=== PATIENT | male | born 1990 | race Hispanic/Latino ===

== ENCOUNTER 2017-02-04 21:57 | Emergency (ER) | payer OTHER ==
[2017-02-04 22:31] VITALS: BP 121/67; PULSE 59; RESP 16; TEMP 98.2; O2SAT 100
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
[2017-02-04] MEDS ORDERED: Silver Sulfadiazine 1% CREAM (50 gm) ONE (22:55)
[2017-02-04] MEDS ORDERED: Silver Sulfadiazine 1% Cream (20 gm) TOP STA (22:55)
== END 2017-02-04 23:38 | disposition home or self-care (01) ==
LOC: H.ER 21:57
DX: T30.0 Burn of unspecified body region, unspecified degree (principal)

== ENCOUNTER 2017-07-12 17:30 | Emergency (ER) | payer OTHER ==
[2017-07-12 17:42] VITALS: BP 139/80; PULSE 67; RESP 18; TEMP 97.9; O2SAT 100
[2017-07-12] MEDS ORDERED: Lidocaine 1% Inj (20ml) ONE (17:48)
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
[2017-07-12] MEDS ORDERED: Absorbable Gelatin Sponge Size 12-7 ONE ×2 (18:24)
[2017-07-12] MEDS ORDERED: Oxycodone/Acetaminophen 5/325 mg Tab PO STA (18:53)
[2017-07-12] MEDS ORDERED: Oxycodone/Acetaminophen 5/325 mg Tab ONE (19:03)
== END 2017-07-12 19:27 | disposition home or self-care (01) ==
LOC: H.ER 17:30
DX: S61.211A Laceration without foreign body of left index finger without damage to nail, initial encounter (principal); S61.213A Laceration without foreign body of left middle finger without damage to nail, initial encounter; S61.215A Laceration without foreign body of left ring finger without damage to nail, initial encounter; W31.89XA Contact with other specified machinery, initial encounter; Y93.9 Activity, unspecified